=== PATIENT | male | born 1955 | race African-American/Black ===

== ENCOUNTER 2019-08-08 07:55 | Emergency (ER) | payer SELFPAY ==
[2019-08-08 08:43] LABS: #Eosinphils 0.4 thou/uL (0.0-0.7); #Lymphocytes 2.2 thou/uL (1.20-3.40); #Monocytes 0.7 thou/uL (0.11-0.59); %Basophils 0.4 % (0.0-1.0); %Eosinophils 5.3 % (0.0-10.0); %Lymphocytes 29.6 % (21.0-51.0); %Monocytes 9.7 % (0.0-10.0); %Neutrophils 55.1 % (42.0-75.0); Hemoglobin 13.1 g/dL (14.0-18.0); Mean Corpuscular HGB CONC 33.6 g/dL (32.0-36.0); Mean Corpuscular Hemoglobin 29.8 pg (27.0-31.0); Mean Corpuscular Volume 88.8 fL (78.0-98.0); Mean Platelet Volume 8.3 fL (7.4-10.4); Platelet Count 208 thou/uL (130-400); RBC Distribution Width 13.8 % (11.5-14.5); Red Blood Cell (RBC) Count 4.38 mill/uL (4.70-6.10); White Blood Cell (WBC) Count 7.3 thou/uL (4.8-10.8)
[2019-08-08 08:48] LABS: ALT (SGPT) 12 U/L (8-55); AST (SGOT) 13 U/L (5-34); Albumin 4.1 g/dL (3.4-4.8); Alkaline Phosphatase 60 U/L (40-150); Anion Gap 12 mmol/L (10-20); BUN (Urea Nitrogen) 12 mg/dL (8.4-25.7); Bilirubin, Total 0.3 mg/dL (0.2-1.2); Calc. Creatinine Clearance 0 mL/min (70-130); Calcium 9.6 mg/dL (7.8-10.44); Carbon Dioxide 24 mmol/L (23-31); Chloride 105 mmol/L (98-107); Estimated GFR-MDRD 52; Glucose 102 mg/dL (80-115); Lipase 18 U/L (8-78); Potassium 4.3 mmol/L (3.5-5.1); Protein, Total 7.1 g/dL (5.8-8.1); Sodium 137 mmol/L (136-145)
[2019-08-08 09:38] LABS: Bilirubin Negative (Negative); Blood, Urine Negative (Negative); Clarity Clear (Clear); Glucose, Urine (Dipstick) Normal (Negative); Leukocyte Negative Leu/uL (Negative); Nitrite Negative (Negative); Protein, Urine (Dipstick) Negative (Neg-Trace); Urobilinogen Normal mg/dL (Less than 2)
--- NOTE | 2019-08-08 09:56 | CT ---
CT Abdomen Pelvis W Con History: Right flank pain. Comparison: None. Findings: Mild atelectasis within the lingula. No basilar consolidation. No pericardial effusion. The liver is enlarged. Pancreas, spleen, adrenal glands are unremarkable. The aortoiliac contour is u nremarkable. No free intraperitoneal gas or fluid. Gallbladder is unremarkable. Portal vein is patent. No dilated loops of large or small bowel. The appendix is visualized and is normal. No acute osseous abnormality. Impression: 1. No acute inflammatory process within the abdomen or pelvis. 2. Hepatomegaly. 3. Normal appendix.
[2019-08-08] MEDS ORDERED: Acetaminophen 500 MG TAB ONE (10:16)
[2019-08-08] MEDS ORDERED: ISOVUE-370 76%-LOCM 1 ML ONE (12:46)
== END 2019-08-08 10:55 | disposition home or self-care (01) ==
LOC: ERS 07:55
DX: M54.5 Low back pain (principal); E78.5 Hyperlipidemia, unspecified; E78.00 Pure hypercholesterolemia, unspecified; I10 Essential (primary) hypertension
CPT/HCPCS: 36415; 74177; 80053; 81003; 83690; 85025; Q9966